=== PATIENT | female | born 1965 | race African-American/Black ===

== ENCOUNTER 2017-05-12 03:14 | Emergency (ER) | payer MEDICAID, OTHER ==
[~2017-05-12] VITALS: Ht 172.7 cm; Wt 81.6 kg
--- NOTE | 2017-05-12 03:14 | NUR ---
PT BIBA#60 PT IS +ETOH, PT IS NOT C/O ANY SOB, DIFFICULTY BREATHING, OR PAIN AT THIS TIME. PT PLACED ON MONITOR, VS WNL, AND ACCU CHECK PERFOMRED. PT SITTING IN BED. WILL CONTINUE TO MONITOR.
--- NOTE | 2017-05-12 06:29 | NUR ---
PT RESTING IN ER BED
[2017-05-12 18:19] VITALS: BP 115/66
--- NOTE | 2017-05-12 18:20 | NUR ---
Patient discharged to home in stable condition. Written and verbal after care instructions given. Patient verbalizes understanding of instruction.
== END 2017-05-12 18:20 | disposition home or self-care (01) ==
LOC: ER 03:16
DX: F10.129 Alcohol abuse with intoxication, unspecified (principal); R79.89 Other specified abnormal findings of blood chemistry
CPT/HCPCS: 82962; 99283; A4606; Z7610

== ENCOUNTER 2019-08-26 21:42 | Emergency (ER) | payer OTHER, MEDICAID ==
[~2019-08-26] VITALS: Ht 172.7 cm; Wt 81.6 kg
--- NOTE | 2019-08-26 22:03 | NUR ---
[id number] C/O ALTERED MENTAL STATUS, FOUND UNCONSCIOUS IN LAUNDROMAT PT OPENS EYES TO PAINFUL STIMULI. PER RA BS 112. +ETOH. Placed on monitor and puls ox.
--- NOTE | 2019-08-26 23:01 | NUR ---
BROUGHT TO CT
--- NOTE | 2019-08-27 00:35 | NUR ---
pt asleep. vss.
--- NOTE | 2019-08-27 02:01 | NUR ---
Pt resting comfortably. vss.
--- NOTE | 2019-08-27 08:50 | NUR ---
Social service consult requested by MD for alcohol intoxication. Per MD notes, pt is a 53-year female, brought in by rescue with complaints of being found unconscious in a laundromat. [employer]CIAL MARKET [employer]ER met with the pt bedside with ASHA Henning. FINANCIAL MARKET DEALER introduced self and explained her role. Pt is alert and oriented x 4. Pt's mood is congruent. Pt reports to drink 3 tall cans of beer daily. FIN[employer]CIAL MARKET DEALER encouraged pt to stop drinking and attend an alcohol treatment program. Pt reports to be homeless and is requesting alf information. FIN[employer]CIAL MARKET [employer]ER provided pt with homeless packet that consists of homeless shelters, food [place], hot showers, medical and mental health clinics and substance abuse referrals. Pt denies any suicidal/homicidal ideations and visual/auditory hallucinations at this time. Pt was provided with breakfast and TAP card. Homeless Patient waiver form was signed by the pt and placed in pt's chart. No other social service needs are requested at this time.
[2019-08-27 09:21] VITALS: BP 135/71
--- NOTE | 2019-08-27 09:23 | NUR ---
Patient given written and verbal discharge instructions. Patient verbalizes understanding of instructions. Patient is ambulatory with steady gait. Refuses offer of senior care placement. Patient given list of available shelters in surrounding area.
== END 2019-08-27 09:23 | disposition home or self-care (01) ==
LOC: ER 21:52
DX: F10.129 Alcohol abuse with intoxication, unspecified (principal); R41.82 Altered mental status, unspecified; Y90.9 Presence of alcohol in blood, level not specified
CPT/HCPCS: 70450-TC

== ENCOUNTER 2020-08-11 01:05 | Emergency (ER) | payer MEDICAID, OTHER ==
[~2020-08-11] VITALS: Ht 172.7 cm; Wt 81.6 kg
[2020-08-11 01:15] VITALS: BP 148/86
[2020-08-11] MEDS ORDERED: MAG HYDROX/AL HYDROX/SIMETH 30 ML UDC ONE (06:27)
[2020-08-11] MEDS ORDERED: MAG HYDROX/AL HYDROX/SIMETH 30 ML UDC PO ONE (06:30)
== END 2020-08-11 06:31 | disposition home or self-care (01) ==
LOC: ER 01:07
DX: R10.84 Generalized abdominal pain (principal); R11.2 Nausea with vomiting, unspecified; R19.7 Diarrhea, unspecified; Z59.0 Homelessness